=== PATIENT | female | born 1955 | race Caucasian/White ===

== ENCOUNTER 2017-09-04 13:57 | Outpatient (CLI) | payer OTHER, MEDICARE ==
[~2017-09-04] VITALS: Ht 154.9 cm; Wt 52.2 kg
[~2017-09-04 13:57] MED LIST: ALBUTEROL; ANTIBIOTIC; BMSB30; CIPRO; DICL75TA2; DILAUDID; FLUC40SU2; LORTAB; NA P133E35
[2017-09-04] MEDS ORDERED: methylPREDNISolone 80 MG/ML (DEPO MEDROL) VIAL ONE (14:04)
[2017-09-04] MEDS ORDERED: DEXAMETHASONE 10 MG/ML (DECADRON) 1 ML VIAL ONE (14:08)
[2017-09-04 14:13] VITALS: BP 116/73
[2017-09-04 14:38] VITALS: BP 117/75
--- NOTE | 2017-09-04 21:58 | OPERATIVE REPORT ---
DATE OF SERVICE: 09/04/2017 PREOPERATIVE AND POSTOPERATIVE DIAGNOSIS: Thoracic radiculopathy. OPERATIVE PROCEDURE: Interlaminar epidural steroid injection. ANESTHESIA: Propofol. COMPLICATIONS: None. CLINICAL SURGICAL COURSE: After being placed in the prone position upon a procedure table, we then administered Propofol for anesthesia. The area overlying the T10-T11 area was identified under fluoroscopy. The skin overlying the area was prepped with Betadine. The skin and the deep structures were anesthetized with approximately 5 mL of 1% Lidocaine. A 25 gauge spinal needle was then inserted and directed down to the lamina under direct fluoroscopy guidance. It was then worked into the ligamentum flavum. Using a loss of resistance syringe, we entered the epidural space. Approximately 1.0 mL of contrast dye was injected. Proximal and distal spread was noted. This indicated that we were in the epidural space. No vascular uptake was noted. Finally, 8.0 mg of Dexamethasone diluted in 3 mm of preservation free saline was injected and washed out the contrast under fluoroscopy. No blood, CSF or paresthesia was noted during the procedure. The patient will be released home without any complications. Job ID: [id number] DocumentID: [id number] Dictated Date: 09/04/2017 14:38:48 [employer]sembled [employer] Date: 09/04/2017 21:58:13 Dictated By: ANDI STOKES DO
== END 2017-09-04 14:38 | disposition home or self-care (01) ==
LOC: CARD 13:57
PROVIDERS: ATTEND Pain Medicine Interventional Pain Medicine
DX: M54.14 Radiculopathy, thoracic region (principal)
CPT/HCPCS: 62321